=== PATIENT | female | born 1955 | race Hispanic/Latino ===

== ENCOUNTER 2024-11-13 17:30 | Emergency (ER) | payer MEDICARE, OTHER ==
[~2024-11-13] VITALS: Ht 162.6 cm; Wt 54.4 kg
[2024-11-13 19:59] VITALS: PULSE 90; RESP 16; TEMP 98.8; O2SAT 99
== END 2024-11-13 20:02 | disposition home or self-care (01) ==
LOC: ER 18:46
DX: S52.591A Other fractures of lower end of right radius, initial encounter for closed fracture (principal); S09.90XA Unspecified injury of head, initial encounter; W18.39XA Other fall on same level, initial encounter; Y93.01 Activity, walking, marching and hiking; Y92.89 Other specified places as the place of occurrence of the external cause; I10 Essential (primary) hypertension; F43.10 Post-traumatic stress disorder, unspecified; F90.9 Attention-deficit hyperactivity disorder, unspecified type
CPT/HCPCS: 70450; 72125; 99284